=== PATIENT | female | born 1965 | race Caucasian/White ===

== ENCOUNTER 2017-12-26 12:47 | Outpatient (CLI) | payer BC ==
--- NOTE | 2017-12-26 14:06 | ULT ---
ABDOMINAL ULTRASOUND: 12/26/2017 PROVIDED CLINICAL HISTORY: Left upper quadrant pain and weight loss. FINDINGS: The visualized abdominal aorta, IVC, and pancreas appear normal. The liver demonstrates no mass or i ntrahepatic biliary ductal dilatation. The common duct is not dilated. Mobile echogenic shadowing f oci are noted within the gallbladder lumen, compatible with gallstones. No evidence for wall thicken ing or pericholecystic fluid. The kidneys demonstrate no hydronephrosis or mass. The spleen is not enlarged and demonstrates no focal abnormality. IMPRESSION: Cholelithiasis without evidence of acute findings related to the gallbladder. POS: CON
== END 2017-12-26 12:48 | disposition home or self-care (01) ==
LOC: SCSULT 12:47
PROVIDERS: ATTEND Family Medicine
DX: R10.812 Left upper quadrant abdominal tenderness (principal); R10.814 Left lower quadrant abdominal tenderness; R63.0 Anorexia; R63.8 Other symptoms and signs concerning food and fluid intake; R53.83 Other fatigue; K80.20 Calculus of gallbladder without cholecystitis without obstruction
CPT/HCPCS: 76700